=== PATIENT | female | born 1950 | race Caucasian/White ===

== ENCOUNTER → 2017-05-28 | Outpatient (CLI) | payer OTHER | LOC: CIMAGING 08:13 | PROVIDERS: ATTEND Internal Medicine | DX: Z12.31 Encounter for screening mammogram for malignant neoplasm of breast (principal) | CPT/HCPCS: G0202 ==

== ENCOUNTER → 2018-08-03 | Outpatient (CLI) | payer OTHER | LOC: CIMAGING 13:20 | PROVIDERS: ATTEND Internal Medicine | DX: D17.79 Benign lipomatous neoplasm of other sites (principal) | CPT/HCPCS: 76641-PO ==

== ENCOUNTER → 2019-03-22 | Outpatient (CLI) | payer OTHER | LOC: CIMAGING 14:09 ==